=== PATIENT | male | born 1960 | race Caucasian/White ===

== ENCOUNTER 2022-09-27 15:09 | Outpatient (CLI) | payer BC | END 2022-09-27 15:10 | disposition home or self-care (01) | LOC: CSHMRI 15:09 | PROVIDERS: ATTEND Neurological Surgery | DX: M47.22 Other spondylosis with radiculopathy, cervical region (principal); D17.9 Benign lipomatous neoplasm, unspecified; M47.26 Other spondylosis with radiculopathy, lumbar region | CPT/HCPCS: 72141; 72148 ==